=== PATIENT | female | born 1990 | race African-American/Black ===

== ENCOUNTER → 2019-01-19 | Outpatient (CLI) | payer OTHER ==
[2019-01-19 15:27] LABS: BASO # 0.1 x10^3/uL (0.0-0.2); BASO % 1 % (0-3); EOS # 0.1 x10^3/uL (0.0-0.7); EOS % 1 % (0-3); HEMATOCRIT 37.9 % (36.0-47.0); HEMOGLOBIN 12.4 g/dL (12.0-15.5); LYMPH # 3.5 x10^3/uL (1.0-4.8); LYMPH % 39 % (24-48); MEAN CORPUSCULAR HEMOGLOBIN 27 pg (25-35); MEAN CORPUSCULAR HGB CONC 33 g/dL (31-37); MEAN CORPUSCULAR VOLUME 83 fL (79-100); MONO # 0.9 x10^3/uL (0.0-1.1); MONO % 10 % (0-9); NEUT # 4.4 x10^3uL (1.8-7.7); NEUT % 49 % (31-73); PLATELET COUNT 297 x10^3/uL (140-400); RED BLOOD COUNT 4.55 x10^6/uL (3.50-5.40); RED CELL DISTRIBUTION WIDTH 13.9 % (11.5-14.5)
[2019-01-19 15:50] LABS: ALBUMIN 3.6 g/dL (3.4-5.0); CALCIUM 8.9 mg/dL (8.5-10.1); CREATININE 0.8 mg/dL (0.6-1.0); GFR 104.9; POTASSIUM 3.6 mmol/L (3.5-5.1)
== END | disposition home or self-care (01) ==
LOC: LAB 15:05
PROVIDERS: ATTEND Surgery
DX: Z01.818 Encounter for other preprocedural examination (principal); K42.9 Umbilical hernia without obstruction or gangrene
CPT/HCPCS: 36415; 80048; 82040; 85025

== ENCOUNTER → 2019-01-26 | Day surgery (SDC) | payer OTHER ==
[~2019-01-26] VITALS: Ht 154.9 cm; Wt 128.8 kg
[~2019-01-26] MED LIST: ACET325T9 PO; ALBU2.5V8 INH; AMLO5TAB10 PO; BUPIVACAINE MPF 0.5% 30 ML VIAL. ONE; DEXAMETHASONE SOD PHOS 4 MG/ML VIAL ONE; DOCU-109 PO; HYDR25TA PO; HYDROmorphone 2 MG/ML VIAL IV PRN; IV RINGERS,LACTATED 1000ML 1,000 ML IV SCH; LIDOCAINE 1% PF 2 ML VIAL. ID PRN; LIDOCAINE 2% PF 5 ML VIAL. ONE; MIDAZOLAM HCL/PF 2 MG/2 ML VIAL. ONE; MORPHINE SULFATE 2 MG/ML VIAL. IV PRN; ONDANSETRON PF 4 MG/2 ML VIAL. IV PRN; ONDANSETRON PF 4 MG/2 ML VIAL. ONE; OXYC1TAB19 PO; PROCHLORPERAZINE 10 MG/2 ML VIAL. IV PRN; PROPOFOL 20 ML IV ONE; RISP2TAB3 PO; ROCURONIUM 50 MG/5 ML VIAL. ONE; ceFAZolin SODIUM 3 GM in IV DEXTROSE 5% 100ML 100 ML IV PRN; fentaNYL PF VIAL 100 MCG/2 ML VIAL IV PRN; fentaNYL PF VIAL 100 MCG/2 ML VIAL ONE; oxyCODONE/APAP 7.5/325 1 TAB TABLET PO ONE
[2019-01-26 07:55] LABS: U PREG PATIENT NEGATIVE (NEG)
--- NOTE | 2019-01-26 08:49 | DISCH ---
DISCHARGE INSTRUCTIONS Condition on Discharge Condition on Discharge: Stable Activity After Discharge Activity Instructions for Disc: Activity as tolerated, Avoid exertion Lifting Instructions after Dis: No heavy lifting Driving Instructions after Dis: Do not drive (3-4 days) Diet after Discharge Diet after Discharge: Regular Wound Incision Care Wound/Incision Care: Ice to area for comfort Other wound/incision instructi: december shower Saturday Follow-Up Follow up with: Yohan ten days ELMO MOORE MD Jan 26, 2019 08:49
[2019-01-26] MEDS: fentaNYL PF VIAL 100 MCG/2 ML VIAL IV PRN ×3 (08:55→09:22)
--- NOTE | 2019-01-26 08:58 | PDOC ---
BRIEF OPERATIVE NOTE Date: Jan 26, 2019 Pre-Op Diagnosis incarcerated umbilical hernia Post-Op Diagnosis same Procedure Performed primary repair Surgeon Yohan Electrician Maintenance Estefania MCMILLAN Anesthesia Type: General (LMA) Blood Loss 5cc IV Fluid 500cc Specimens Obtained none Findings incarcerated preperitoneal fat Complications none Operative Note # [id number] ELMO MOORE MD Jan 26, 2019 08:58
[2019-01-26 09:25] VITALS: BP 141/92
--- NOTE | 2019-01-26 10:11 | OP ---
DATE OF SURGERY: 01/26/2019 PREOPERATIVE DIAGNOSIS: Incarcerated umbilical hernia. POSTOPERATIVE DIAGNOSIS: Incarcerated umbilical hernia. PROCEDURE: Primary repair. SURGEON: Leandro Moore MD BOX TOE CEMENTER: Estefania MCMILLAN. ANESTHESIA: General LMA. ESTIMATED BLOOD LOSS: 5 mL. INTRAVENOUS FLUID: 500. INDICATIONS: The patient is a 28-year-old with umbilical fullness and pain, brought for repair. DESCRIPTION OF PROCEDURE: The patient brought to the operating suite, given a general LMA and the belly prepped and draped in usual sterile fashion. An infraumbilical incision was infiltrated with 0.5% Marcaine plain, incised, and dissection carried down to the anterior sheath. The hernia encircled with careful blunt dissection and a Roque drain placed around it. The umbilical skin was then freed from the underlying hernia. The hernia sac was excised and the contents reduced. The small defect was closed with interrupted inverted [id number] 0 PDS. A 0 Vicryl for a second row was used to reinforce the repair. Good hemostasis was present. The umbilical skin was tacked to the underlying repair with 3-0 Vicryl. Subcutaneous approximated with 3-0 Vicryl, skin closed with a subcuticular 4-0 Monocryl. Steri-Strips and sterile dressing applied. Abdominal binder placed. Post-closure, sponge counts had been correct. LEANDRO MOORE MD DR: HERNAN/nts JOB#: [id number] / [id number]
== END | disposition home or self-care (01) ==
LOC: SURG 07:17 → EDUNIT# 08:00
PROVIDERS: ATTEND Surgery
DX: K42.0 Umbilical hernia with obstruction, without gangrene (principal)
CPT/HCPCS: 49587; 81025; A7015; J1100; J2001; J2250; J2405; J2704; J3010; J3490